=== PATIENT | female | born 1970 | race Two or more races ===

== ENCOUNTER 2017-06-23 06:24 | Day surgery (SDC) | payer OTHER ==
[2017-06-23] VITALS (16 sets, daily range): BP systolic 113–148; BP diastolic 62–85
[~2017-06-23] VITALS: Ht 154.9 cm; Wt 66.2 kg
--- NOTE | 2017-06-23 01:15 | Pre-op HX & Phy Repo 2 SIG ---
DATE OF ADMISSION: 06/23/2017 PREOPERATIVE DIAGNOSIS: The patient is a 46-year-old female with excessive vaginal bleeding for the last 3 to 4 months . The patient has a submucosal fibroid that is becoming visible at cervical os. PAST MEDICAL HISTORY: Elevated liver function tests, most likely consistent with alcohol use. PAST SURGICAL HISTORY: None. ALLERGIES: None. SOCIAL HISTORY: The patient drinks 2 glasses of wine nightly. She lives with her male partner. REVIEW OF SYSTEMS: Contributory for heavy bleeding, severe dysmenorrhea, and lower abdominal pain. No nausea. No vomiting. No fever. No chills. PHYSICAL EXAMINATION: VITAL SIGNS: Blood pressure is 140/80, pulse 70s, respiratory rate 18, weight 164 pounds. GENERAL: female that appears her stated age, in no acute distress. HEAD AND NECK: Pupils equal and reactive to light. LUNGS: Clear to auscultation bilaterally. CARDIAC: Regular rate and rhythm. ABDOMEN: Soft, nondistended, nontender. Bimanual exam consistent with an ovarian mass that is approximately 6 cm in greatest diameter that would be a right ovarian mass, enlarged 8 to 10 weeks uterus, and small segment of uterine fibroids visible through cervical os. LABORATORY AND DIAGNOSTIC DATA: Her labs are significant for anemia. Last CBC was 9.2 as well as elevated liver function, last on 06/16/2017, ALT 128 and AST 126. Her hepatitis serologies are negative. ASSESSMENT: 1. Metromenorhagia 2. Submucosal fibroids. 3. 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 PLAN AND DISCUSSION: The patient is having heavy vaginal bleeding with anemia. She is on iron therapy, however, she keeps bleeding and is very distressed by it. The case was discussed with her primary physician, Dr. Henson, and because of the elevated liver function, decision was made not to proceed with the right oophorectomy due to ovarian mass until her liver functions are worked up, however, because of the heavy bleeding, the transcervical myomectomy has to be performed to stop the bleeding and control her anemia. The patient had a consult with Dr. Antony Louise,GI, who found that her elevated liver functions are mostly likely due to alcohol consumption and the patient has been counseled regarding alcohol cessation, which she concurs with. So, the plan is for hysteroscopy and resection of the fibroid, possible D and C. Martine Nolasco M.D. DR: KEON JOB#: [id number] CC: TIMA
[~2017-06-23 06:24] MED LIST: NKM
[2017-06-23] MEDS ORDERED: fentaNYL 100 mcg/2 mL IV ONE (07:00)
[2017-06-23] MEDS ORDERED: cefOXitin Sod 2 GM in D5W 110 ML IVPB ONE (07:00)
[2017-06-23] MEDS ORDERED: Lidocaine 1% MPF 10mg/ml 5ml ONE (07:00)
[2017-06-23] MEDS ORDERED: Midazolam 2mg/2ml Inj ONE (07:00)
[2017-06-23] MEDS ORDERED: Propofol 200mg/20ml IV ONE (07:00)
[2017-06-23] MEDS ORDERED: cefOXitin 2gm Inj ONE (07:26)
[2017-06-23] MEDS ORDERED: LR 1000ml ONE (07:30)
[2017-06-23] MEDS ORDERED: ePHEDrine 50mg/ml Inj ONE (07:30)
--- NOTE | 2017-06-23 07:41 | Pre-Procedure Note/Attestation ---
Pre-Procedure Note/Attestation Complete Prior to Procedure Planned Procedure: not applicable Procedure Narrative: Hysteroscopy dilation and curettage/ transcervical myomectomy Indications for Procedure Pre-Operative Diagnosis: submucousal fibroid/ bleeding Attestation I attest that I discussed the nature of the procedure; its benefits; risks and complications; and alternatives (and the risks and benefits of such alternatives ), prior to the procedure, with the patient (or the patient's legal outside medical sales representative). I attest that, if there was a reasonable possibility of needing a blood transfusion, the patient (or the patient's legal outside medical sales representative) was given the [facility] standardized written summary, pursuant to the [place] Blood Safety Act ([place] Health and Safety Code # 1645, as amended). I attest that I re-evaluated the patient just prior to the surgery and that there has been no change in the patient's H&P, except as documented below: HELIO LAURA Jun 23, 2017 07:41
--- NOTE | 2017-06-23 08:43 | Brief Operative Note ---
Immediate Post Operative Note Operative Note Pre-op Diagnosis: submucousal fibroid/ bleeding Procedure: hysteroscopy /dilation and curettage/ resection of submucousal fibroid Post-op Diagnosis: same Anesthesia: general Specimen: yes Complications: none Condition: stable Fluids: crystalloid Estimated Blood Loss: volume - 100cc Drains: none Implant(s) used?: No HELIO LAURA Jun 23, 2017 08:43
--- NOTE | 2017-06-23 08:52 | Immediate Post-Op Evaluation ---
Immediate Post-Op Evalulation Immediate Post-Op Evalulation Procedure: D&C Date of Evaluation: Jun 23, 2017 Time of Evaluation: 08:47 IV Fluids: 1000 Blood Products: 0 Estimated Blood Loss: 100 Urinary Output: 100 Blood Pressure Systolic: 113 Blood Pressure Diastolic: 62 Pulse Rate: 79 Respiratory Rate: 14 O2 Sat by Pulse Oximetry: 100 Temperature (Fahrenheit): 98.0 Pain Score (1-10): 0 Nausea: No Vomiting: No Complications none Patient Status: awake, reacts, patent Hydration Status: adequate Drug: mefoxitin Given Within 1 Hr of Incision: Yes Time Given: 07:30 PADMA BENTLEY CRNA Jun 23, 2017 08:51
--- NOTE | 2017-06-23 08:53 | Anethesia Preoperative Eval ---
Anesthesia Pre-op PMH/ROS General Date of Evaluation: Jun 23, 2017 Time of Evaluation: 07:30 Anesthesiologist: jessica ASA Score: ASA 2 Mallampati Score Class I : Soft palate, uvula, fauces, pillars visible Class II: Soft palate, uvula, fauces visible Class III: Soft palate, base of uvula visible Class IV: Only hard plate visible Mallampati Classification: Class II Surgeon: paresh Diagnosis: uterine fibroids Surgical Procedure: D&C; Anesthesia History: none Family History: no anesthesia problems Allergies: Coded Allergies: No Known Allergies (Unverified , 06/21/17) Medications: see eMAR Past Medical History Cardiovascular: Denies: HTN, CAD, [place], valve dz, arrhythmia, other Pulmonary: Denies: asthma, COPD, ANA LAURA, other Gastrointestinal/Genitourinary: Reports: other - hepatitis; Denies: GERD, CRI, ESRD Neurologic/Psychiatric: Denies: dementia, CVA, depression/anxiety, TIA, other Endocrine: Denies: DM, hypothyroidism, steroids, other HEENT: Denies: cataract (L), cataract (R), glaucoma, [place] (L), [place] (R), other Hematology/Immune: Reports: anemia Musculoskeletal/Integumentary: Denies: OA, RA, DJD, DDD, edema, other PSxH Narrative: oral surgery Anesthesia Pre-op Phys. Exam Physician Exam Last Vital Signs Date Time Temp Pulse Resp B/P (MAP) Pulse Ox O2 Delivery O2 Flow Rate FiO2 06/23/17 06:54 98.1 20 20 126/63 99 Room Air 98.1 Constitutional: NAD Neurologic: CN 2-12 intact Cardiovascular: RRR Respiratory: CTA Gastrointestinal: S/NT/ND Airway Exam Mallampati Classification 2 Mallampati Score: Class II MO: full ROM: full Dentures: no upper, no lower Anesthesia Pre-op A/P Labs Hematology Test 06/23/17 08:30 White Blood Count Pending Red Blood Count Pending Hemoglobin Pending Hematocrit Pending Mean Corpuscular Volume Pending Mean Corpuscular Hemoglobin Pending Mean Corpuscular Hemoglobin Concent Pending Red Cell Distribution Width Pending Platelet Count Pending Mean Platelet Volume Pending Neutrophils (%) (Auto) Pending Lymphocytes (%) (Auto) Pending Monocytes (%) (Auto) Pending Eosinophils (%) (Auto) Pending Basophils (%) (Auto) Pending Urine Test Test 06/23/17 06:24 Urine HCG, Qualitative Negative (NEGATIVE) Studies Pre-op Studies: EKG - sr Risk Assessment & Plan Assessment: denies changes in health Plan: general LMA Pre-Antibiotics Drug: mefoxitin Given Within 1 Hr of Incision: Yes Time Given: 07:30 PADMA BENTLEY CRNA Jun 23, 2017 08:53
--- NOTE | 2017-06-23 08:57 | 48 Hour Post Anesthesia Eval ---
Post Anesthesia Evaluation Procedure: D&C Date of Evaluation: Jun 23, 2017 Time of Evaluation: 08:57 Blood Pressure Systolic: 115 0: 75 Pulse Rate: 67 Respiratory Rate: 14 Temperature (Fahrenheit): 97.5 O2 Sat by Pulse Oximetry: 100 Airway: patent Nausea: No Vomiting: No Hydration Status: adequate Cardiopulmonary Status: stable Mental Status/LOC: patient returned to baseline Follow-up Care/Observations: na Post-Anesthesia Complications: none Follow-up care needed: N/A PADMA BENTLEY CRNA Jun 23, 2017 08:57
[2017-06-23] MEDS ORDERED: Hydromorphone 0.5mg/0.5ml inj IVP PRN (09:00)
[2017-06-23] MEDS ORDERED: fentaNYL 100 mcg/2 mL IV PRN (09:00)
[2017-06-23 09:06] LABS: HEMATOCRIT 24.5 % (37.0-47.0); HEMOGLOBIN 7.6 G/DL (12.0-16.0); MEAN CORPUSCULAR VOLUME 76 FL (80-99); PLATELET COUNT 274 K/UL (150-450); RED BLOOD COUNT 3.24 M/UL (4.20-5.40); RED CELL DISTRIBUTION WIDTH 20.4 % (11.6-14.8)
--- NOTE | 2017-06-23 15:00 | Operative Note - Dictated ---
DATE OF OPERATION: 06/23/2017 PREOPERATIVE DIAGNOSES: 1. Submucosal fibroid. 2. Metromenorrhagia. POSTOPERATIVE DIAGNOSES: 1. Submucosal fibroid. 2. Metromenorrhagia. PROCEDURE: 1. Hysteroscopy. 2. Dilation and curettage. 3. Resection of submucosal fibroid. ANESTHESIA: General endotracheal. ANESTHESIOLOGIST: Calli Xiao CRNA SURGEONS: Martine Nolasco M.D. ESTIMATED BLOOD LOSS: 100 mL. SORBITOL FLUID DEFICIT: 100 mL. Urine output 100 mL. FLUIDS: Crystalloid. PROCEDURE IN DETAIL: After ensuring informed consent, the patient was taken to the operating room, where general anesthesia was induced. The patient was sterilely prepped and draped and examined. The patient had a grade 2 uterine prolapse. The uterus was enlarged to approximately 10 week size. Hysteroscope was placed inside the uterine cavity. A large lower uterine segment submucosal fibroid was observed. There was approximately 2 cm x 1.5 cm in size. The stalk of it was resected with a resectoscope on the 50:50 setting and the fibroid was removed. Next, the stalk was cauterized with resectoscope. Next, fractional curettage was performed and hysteroscope was placed inside the uterine cavity. Good hemostasis was assured. Please note that also about 4 units of dilute Pitressin 20 units Pitressin and 50 mL was administered in the middle of the case to help with visualization. At the end, excellent hemostasis was assured. All instruments were removed from the vagina. All instrument and lap count was correct x2. The patient was taken to the recovery area, breathing on her own and extubated. Stat CBC was sent given that the patient has a reported heavy bleeding for the last 2 to 3 days. Martine Nolasco M.D. DR: DEREJE JOB#: [id number] CC: TIMA
[2017-06-23] MEDS ORDERED: DiphenhydrAMINE 50mg/ml Inj IVP PRN (15:01)
[2017-06-23] MEDS ORDERED: D5 1/2NS 1,000 ML IV SCH (15:01)
[2017-06-23] MEDS ORDERED: Tylenol #3 tab (300mg/30mg) ORAL PRN (15:01)
[2017-06-23] MEDS ORDERED: Norco 5mg/325mg tab ORAL PRN (15:01)
[2017-06-26] MEDS ORDERED: EPINEPHrine 1mg/1ml Amp ONE (07:18)
[2017-06-26] MEDS ORDERED: Lidocaine 1% 10mg/ml/EPI 0.01mg/ml 50ml INJ ONE (07:19)
[2017-06-26] MEDS ORDERED: NeoSporin Gu Irrig 1ml Amp IRRIG ONE (07:19)
[2017-06-26] MEDS ORDERED: Bacitracin 50000 Units Vial ONE (07:19)
== END 2017-06-23 11:55 | disposition home or self-care (01) ==
LOC: SUR 06:24
DX: D25.0 Submucous leiomyoma of uterus (principal); N92.1 Excessive and frequent menstruation with irregular cycle
CPT/HCPCS: 36415; 58558; 58561; 81025; 85007; 85025; J0694; J1170; J2250; J2405; J2704; J3010

== ENCOUNTER 2017-11-24 06:14 | Day surgery (SDC) | payer OTHER ==
[2017-11-24] VITALS (15 sets, daily range): BP systolic 116–173; BP diastolic 56–91
[~2017-11-24] VITALS: Ht 154.9 cm; Wt 70.8 kg
[~2017-11-24 06:14] MED LIST changes: +FERROUS SULFAT325 MG ORAL
[2017-11-24] MEDS ORDERED: Ropivacaine 5mg/ml Vial 30ml INJ ONE (06:56)
[2017-11-24] MEDS ORDERED: cefOXitin Sod 2 GM in D5W 110 ML IVPB ONE (07:00)
--- NOTE | 2017-11-24 07:18 | Anethesia Preoperative Eval ---
Anesthesia Pre-op PMH/ROS General Date of Evaluation: Nov 24, 2017 Anesthesiologist: Chau ASA Score: ASA 2 Mallampati Score Class I : Soft palate, uvula, fauces, pillars visible Class II: Soft palate, uvula, fauces visible Class III: Soft palate, base of uvula visible Class IV: Only hard plate visible Mallampati Classification: Class II Surgeon: Constance Diagnosis: Right ovarian cyst Surgical Procedure: Laparoscopic right salpingo oophorectomy Anesthesia History: none Family History: no anesthesia problems Allergies: Coded Allergies: No Known Allergies (Unverified , 06/21/17) Medications: see eMAR Past Medical History Cardiovascular: Denies: HTN, CAD, [place], valve dz, arrhythmia, other Pulmonary: Denies: asthma, COPD, ANA LAURA, other Gastrointestinal/Genitourinary: Denies: GERD, CRI, ESRD, other Neurologic/Psychiatric: Reports: depression/anxiety; Denies: dementia, CVA, TIA, other Endocrine: Denies: DM, hypothyroidism, steroids, other HEENT: Denies: cataract (L), cataract (R), glaucoma, [place] (L), [place] (R), other Hematology/Immune: Reports: anemia; Denies: DVT, bleeding disorder, other Musculoskeletal/Integumentary: Denies: OA, RA, DJD, DDD, edema, other PSxH Narrative: myomectomy Anesthesia Pre-op Phys. Exam Physician Exam Last Vital Signs Date Time Temp Pulse Resp B/P (MAP) Pulse Ox O2 Delivery O2 Flow Rate FiO2 11/24/17 06:48 Room Air 11/24/17 06:42 97.4 81 18 136/79 (98) 98 97.4 Constitutional: NAD Cardiovascular: RRR Respiratory: CTA Airway Exam Mallampati Score: Class II MO: full ROM: full Anesthesia Pre-op A/P Labs see chart Urine Test HCG Result-Negative Studies Pre-op Studies: EKG - sr Risk Assessment & Plan Assessment: ASA II Plan: GA Status Change Before Surgery: No Pre-Antibiotics Drug: CEfoxitin 2g Given Within 1 Hr of Incision: Yes Time Given: 07:45 Kristie Carrillo MD Nov 24, 2017 07:18
[2017-11-24] MEDS ORDERED: cefOXitin 2gm Inj ONE (07:21)
[2017-11-24] MEDS ORDERED: Propofol 200mg/20ml IV ONE (07:29)
[2017-11-24] MEDS ORDERED: Midazolam 2mg/2ml Inj ONE (07:29)
[2017-11-24] MEDS ORDERED: Lidocaine 1% MPF 10mg/ml 5ml ONE (07:29)
[2017-11-24] MEDS ORDERED: fentaNYL 100 mcg/2 mL IV ONE (07:29)
[2017-11-24] MEDS ORDERED: NS Irrig 1000ml ONE (07:30)
[2017-11-24] MEDS ORDERED: Sterile Water Irrig 1000ml IRRIG ONE (07:30)
[2017-11-24] MEDS ORDERED: LR 1000ml ONE (07:30)
[2017-11-24] MEDS ORDERED: Zemuron 50mg/5ml Inj IV ONE (07:32)
[2017-11-24] MEDS ORDERED: Succinylcholine 20mg/ml 10ml vial ONE (07:32)
--- NOTE | 2017-11-24 07:37 | Pre-Procedure Note/Attestation ---
Pre-Procedure Note/Attestation Complete Prior to Procedure Planned Procedure: right Procedure Narrative: right salpingoopherectomy, left salpingectomy, hysteroscopy, dilation and curettage Indications for Procedure Pre-Operative Diagnosis: right complex ovarian cyst Attestation I attest that I discussed the nature of the procedure; its benefits; risks and complications; and alternatives (and the risks and benefits of such alternatives ), prior to the procedure, with the patient (or the patient's legal phone representative). I attest that, if there was a reasonable possibility of needing a blood transfusion, the patient (or the patient's legal phone representative) was given the [facility] standardized written summary, pursuant to the [place] Blood Safety Act ([place] Health and Safety Code # 1645, as amended). I attest that I re-evaluated the patient just prior to the surgery and that there has been no change in the patient's H&P, except as documented below: Martine Nolasco MD Nov 24, 2017 07:37
[2017-11-24] MEDS ORDERED: Tylenol #3 tab (300mg/30mg) ORAL PRN (07:45)
[2017-11-24] MEDS ORDERED: HYDROmorphone 1mg/ml Carpuject SUBQ PRN (07:45)
[2017-11-24] MEDS ORDERED: Metoclopramide 10mg/2ml Inj IVP PRN ×2 (07:45→08:00)
[2017-11-24] MEDS ORDERED: Norco 5mg/325mg tab ORAL PRN (07:45)
[2017-11-24] MEDS ORDERED: D5 1/2NS 1,000 ML IV SCH (07:45)
[2017-11-24] MEDS ORDERED: DiphenhydrAMINE 50mg/ml Inj IVP PRN ×2 (07:45→08:00)
[2017-11-24] MEDS ORDERED: Dexamethasone 4mg/ml vial ONE (07:51)
[2017-11-24] MEDS ORDERED: Ketorolac 30mg Inj ONE (07:51)
[2017-11-24] MEDS ORDERED: Metoclopramide 10mg/2ml Inj ONE (07:51)
[2017-11-24] MEDS ORDERED: LR 1000ml 1,000 ML IVLG SCH (07:59)
[2017-11-24] MEDS ORDERED: fentaNYL 100 mcg/2 mL IV PRN (08:00)
[2017-11-24] MEDS ORDERED: Midazolam 2mg/2ml Inj IVP PRN (08:00)
[2017-11-24] MEDS ORDERED: Labetalol 5mg/ml 20ml vial IV PRN (08:00)
[2017-11-24] MEDS ORDERED: Ketorolac 30mg Inj IV PRN (08:00)
[2017-11-24] MEDS ORDERED: LORazepam Inj 2mg/ml 1ml IV PRN (08:00)
[2017-11-24] MEDS ORDERED: NS Irrig 1000ml IRRIG ONE (08:59)
--- NOTE | 2017-11-24 09:48 | Brief Operative Note ---
Immediate Post Operative Note Operative Note Pre-op Diagnosis: right complex ovarian cyst Procedure: RIGHT SALPINGOOPHERECTOMY Post-op Diagnosis: SAME Surgeon: KEYA Crusher [place] Mica: IDRIS Anesthesiologist: ZHEN Anesthesia: general Specimen: yes Complications: none Condition: stable Fluids: CRYSTALLOID Estimated Blood Loss: minimal Drains: none Implant(s) used?: No Martine Nolasco MD Nov 24, 2017 09:48
--- NOTE | 2017-11-24 09:57 | 48 Hour Post Anesthesia Eval ---
Post Anesthesia Evaluation Procedure: Laparoscopic right salpingo-oophorectomy Date of Evaluation: Nov 24, 2017 Time of Evaluation: 11:35 Blood Pressure Systolic: 129 0: 71 Pulse Rate: 81 Respiratory Rate: 15 Temperature (Fahrenheit): 98 O2 Sat by Pulse Oximetry: 95 Airway: patent Nausea: No Vomiting: No Pain Intensity: 0 Hydration Status: adequate Cardiopulmonary Status: at baseline Mental Status/LOC: patient returned to baseline Post-Anesthesia Complications: 0 Follow-up care needed: ready to discharge Kristie Carrillo MD Nov 24, 2017 09:57
--- NOTE | 2017-11-24 09:57 | Immediate Post-Op Evaluation ---
Immediate Post-Op Evalulation Immediate Post-Op Evalulation Procedure: Laparoscopic right salpingo-oophorectomy Date of Evaluation: Nov 24, 2017 Time of Evaluation: 09:56 IV Fluids: 1.4L Blood Products: 0 Estimated Blood Loss: min Urinary Output: 250 Blood Pressure Systolic: 131 Blood Pressure Diastolic: 70 Pulse Rate: 84 Respiratory Rate: 18 O2 Sat by Pulse Oximetry: 99 Temperature (Fahrenheit): 97.9 Pain Score (1-10): 0 Nausea: No Vomiting: No Complications 0 Patient Status: awake, reacts, patent, none Hydration Status: adequate Drug: CEfoxitin 2g Given Within 1 Hr of Incision: Yes Time Given: 07:45 Kristie Carrillo MD Nov 24, 2017 09:57
[2017-11-24] MEDS: Hydromorphone 0.5mg/0.5ml inj IVP PRN ×2 (10:25→10:47)
--- NOTE | 2017-11-24 11:45 | Operative Note - Dictated ---
DATE OF OPERATION: 11/24/2017 PREOPERATIVE DIAGNOSIS: Right complex adnexal mass. POSTOPERATIVE DIAGNOSIS: Right complex adnexal mass. PROCEDURE: Laparoscopic right salpingo-oophorectomy. SURGEON: Martine Nolasco M.D. TIRE MAN: Audra Chavarria M.D. ANESTHESIOLOGIST: Kristie Faith M.D. ANESTHESIA: General endotracheal. ESTIMATED BLOOD LOSS: Minimal. URINE OUTPUT: 200 mL. FLUIDS: Crystalloid. FINDINGS: A 7 cm complex right adnexal mass appeared to be originating from the right ovary, tube draped over it. Left tube and ovary within normal limits. Uterus within normal limits except for a posterior intramural 3 cm fibroid. PROCEDURE IN DETAIL: After ensuring informed consent, the patient was taken to the operating room where general anesthesia was induced. The patient was sterilely prepped and draped. Weighted speculum was placed in the vagina. A HUMI-type manipulator was placed inside the uterine cavity and balloon insufflated to 10 mL. A small incision was made inside the umbilicus. The Veress needle was placed inside the peritoneal cavity and peritoneal cavity was insufflated with CO2. A 10 mm trocar was placed inside the peritoneal cavity. There was some difficulty placing the intraumbilical 10 mm trocar because of peritoneal laxity. The intraperitoneal placement was confirmed with laparoscope. The left lateral trocar was placed under direct visualization after infiltration with local Marcaine. After this, a 10 mm suprapubic trocar was likewise placed under direct visualization. The pelvis was explored with findings as above. Using bipolar cautery, utero-ovarian was cauterized and then transected. Then, infundibulopelvic was identified, cauterized, and transected. Transection was continued along the broad ligament until the right adnexa was amputated completely with a tube, ovary, and cyst intact. Excellent hemostasis was assured with bipolar cautery. A endobag was placed through the midline 10 mm trocar and the mass was easily placed inside the bag. The mass was brought up to the skin and taken out in pieces until the whole adnexa with the mass and the tube were completely removed from the pelvis. The peritoneal cavity was re-explored, irrigated, irrigant was suctioned off. Some bleeding around the umbilicus was cauterized with bipolar cautery. All trocars were removed under direct visualization. Both umbilical and midline incisions were closed with #0 Vicryl and skin was closed with 4-0 Monocryl in all three sites. At the end of the procedure, all instrument and lap counts were correct x2. The patient was taken to the recovery area and extubated in stable condition. Martine Nolasco M.D. DR: MANOJ JOB#: [id number] CC:
== END 2017-11-24 15:20 | disposition home or self-care (01) ==
LOC: SUR 06:14
DX: N83.9 Noninflammatory disorder of ovary, fallopian tube and broad ligament, unspecified (principal); F32.9 Major depressive disorder, single episode, unspecified; F41.9 Anxiety disorder, unspecified; D64.9 Anemia, unspecified; Z86.11 Personal history of tuberculosis
CPT/HCPCS: 58661; 81025; 93005; J0330; J0694; J1100; J1170; J1885; J2250; J2405; J2704; J2765; J2795; J3010; 94003; 94150